=== PATIENT | female | born 1955 | race Native Hawaiian/Other Pacific Islander ===

== ENCOUNTER 2016-11-21 21:24 | Inpatient (IN) | payer OTHER, MEDICARE ==
[2016-11-21] MEDS ORDERED: SODIUM CHLORIDE FLUSH 0.9% 10 ML SYRINGE IVP ONE (21:52)
--- NOTE | 2016-11-21 21:57 | ED Physician Documentation ---
PD HPI DYSPNEA - Stated complaint Stated Complaint: SOA/SHOULDER PX - Chief complaint Chief Complaint: Resp - History obtained from History obtained from: Patient - History of Present Illness Timing - onset: Last night Timing - onset during: Light activity Timing - duration: Hours Timing - details: Gradual onset, Waxing and waning Pain level now: 8 Improved by: O2, Rest Worsened by: Exertion Associated symptoms: Wheezing, Chest pain / discomfort. No: Fever, Cough, Hemoptysis, Palpitations Similar symptoms before: Has not had sx before Recently seen: Not recently seen - Additional information Additional information: since last night (approximately 24 hours [employer]), gradual onset of dyspnea, wheezing, and midline/left chest pressure. Symptoms have gradually worsened throughout the day. Treadmill stress test approximately 4-5 years ago (patient says it was normal). Review of Systems Constitutional: reports: Reviewed and negative Eyes: reports: Reviewed and negative Ears: reports: Reviewed and negative Nose: reports: Reviewed and negative Throat: reports: Reviewed and negative Cardiac: reports: Chest pain / pressure, Pedal edema. denies: Palpitations, Calf pain Respiratory: reports: Dyspnea, Wheezing. denies: Cough GI: reports: Reviewed and negative : reports: Reviewed and negative Skin: reports: Reviewed and negative Musculoskeletal: reports: Extremity swelling (BLE edema) Neurologic: reports: Reviewed and negative PD PAST MEDICAL HISTORY - Past Medical History Past Medical History: Yes Cardiovascular: Hypertension Endocrine/Autoimmune: Type 2 diabetes - Past Surgical History Past Surgical History: Yes Ortho: Spine surgery - Present Medications Home Medications: Ambulatory Orders Medication Instructions Recorded Confirmed Albuterol Sulfate [Proair Hfa 1 - 2 puffs INH Q4H PRN 11/22/16 11/22/16 Inhaler] Aspirin [Aspirin EC] 81 mg PO DAILY 11/22/16 11/22/16 Cyclobenzaprine HCl 5 mg PO QPM PRN 11/22/16 11/22/16 Famotidine [Pepcid] 20 mg PO BID 11/22/16 11/22/16 Gabapentin 300 mg PO TID 11/22/16 11/22/16 Glipizide [Glucotrol] 10 mg PO BID 11/22/16 11/22/16 Insulin NPH Human Isophane 25 unit SQ BIDWM 11/22/16 11/22/16 [Humulin N] Insulin Regular Human [NovoLIN R] 1 ea SQ Q6H PRN 11/22/16 11/22/16 Insulin Regular, Human [Humulin R] 100 unit IJ TIDWM 11/22/16 11/22/16 Metformin HCl 1,000 mg PO BIDWM 11/22/16 11/22/16 amLODIPine [Norvasc] 10 mg PO DAILY 11/22/16 11/22/16 cloNIDine [Catapres] 0.1 mg PO TID 11/22/16 11/22/16 fentaNYL 12 MCG PATCH [Duragesic 12 mcg TOP Q3D 11/22/16 11/22/16 12mcg patch] oxyCODONE/ACET 5/325 [Percocet 5 1 each PO TID PRN 11/22/16 11/22/16 mg/325 mg] - Allergies Allergies/Adverse Reactions: Allergies Allergy/AdvReac Type Severity Reaction Status Date / Time No Known Drug Allergies Allergy Verified 11/21/16 21:38 - Living Situation Living Arrangement: reports: At home - Social History Does the pt smoke?: No PD ED PE NORMAL - Vitals Vital signs reviewed: Yes - General General: Alert and oriented X 3, Well developed/nourished, Other (mild respiratory distress (tachypneic, speaks in 2-3 word sentences)) - HEENT HEENT: Moist mucous membranes - Neck Neck: Supple, no meningeal sign - Abdomen Abdomen: Soft, Non tender, Non distended - Derm Derm: Normal color, Warm and dry - Neuro Neuro: Alert and oriented X 3 PD ED PE EXPANDED - Cardiac Cardiac: Irregularly irregular, Murmur Present - Respiratory Respiratory: Wheezing (diffuse end-expiratory wheezing) - Extremities Extremities: Pedal edema bilateral (1+) Results - Vitals Vitals: Vital Signs - 24 hr 11/21/16 11/21/16 11/21/16 21:36 22:31 22:49 Temperature 37.4 C Heart Rate 88 97 95 Respiratory 22 19 18 Rate Blood Pressure 154/82 H 155/64 H 148/66 H O2 Saturation 92 92 93 11/21/16 23:38 Temperature 36.5 C Heart Rate 79 Respiratory 18 Rate Blood Pressure 133/64 H O2 Saturation 95 Oxygen O2 Source Nasal cannula Oxygen Flow Rate 3 - EKG (time done) No standard instances Rate: Rate (enter#) (96) Rhythm: Atrial fibrillation [place]: Normal QRS: LVH Ischemia: T wave inversion (V5, V6, I) - Labs Labs: Laboratory Tests 11/21/16 11/21/16 11/21/16 21:50 21:50 21:50 WBC 14.4 H RBC 3.24 L Hgb 10.7 L Hct 32.8 L MCV 101.3 H MCH 32.9 H MCHC 32.5 RDW 13.6 Plt Count 227 MPV 8.7 Neut # 11.6 H Lymph # 1.6 [place] # 1.0 Eos # 0.1 Baso # 0.1 Absolute Nucleated RBC 0.02 Nucleated RBCs 0.1 Sodium 138 Potassium 3.5 Chloride 105 Carbon Dioxide 23 Anion Gap 10.0 BUN 32 H Creatinine 1.4 H Estimated GFR (MDRD) 38 L Glucose 220 H Calcium 9.1 Total Bilirubin 1.5 H AST 48 H ALT 93 H Alkaline Phosphatase 65 Troponin I < 0.04 B-Natriuretic Peptide Total Protein 8.4 H Albumin 4.1 Globulin 4.3 H Albumin/Globulin Ratio 1.0 Lipase 48 11/21/16 21:50 WBC RBC Hgb Hct MCV MCH MCHC RDW Plt Count MPV Neut # Lymph # [place] # Eos # Baso # Absolute Nucleated RBC Nucleated RBCs Sodium Potassium Chloride Carbon Dioxide Anion Gap BUN Creatinine Estimated GFR (MDRD) Glucose Calcium Total Bilirubin AST ALT Alkaline Phosphatase Troponin I B-Natriuretic Peptide 567 H Total Protein Albumin Globulin Albumin/Globulin Ratio Lipase - Rads (name of study) chest xray Radiology: Prelim report reviewed, See rad report PD MEDICAL DECISION MAKING - ED course Complexity details: reviewed results, re-evaluated patient, considered differential, d/w patient Departure - Departure Disposition: 66 [facility] DC/Xfer Clinical Impression: Congestive heart failure Qualifiers: Congestive heart failure type: unspecified congestive heart failure type Congestive heart failure chronicity: acute Qualified Code(s): I50.9 - Heart failure, unspecified Chest pain Qualifiers: Chest pain type: unspecified Qualified Code(s): R07.9 - Chest pain, unspecified Atrial fibrillation Qualifiers: Atrial fibrillation type: persistent Qualified Code(s): I48.1 - Persistent atrial fibrillation Condition: Stable Discharge Date/Time: 11/22/16 00:45
[2016-11-21] MEDS ORDERED: NITROGLYCERIN 2% PASTE TOP STA (22:20)
[2016-11-21] MEDS ORDERED: FUROSEMIDE 40 MG/4 ML VIAL IVP STA (22:20)
[2016-11-21 22:28] LABS: BASOPHILS # (AUTO) 0.1 10^3/uL (0.0-0.1); BASOPHILS % (AUTO) 0.6 %; EOSINOPHILS # (AUTO) 0.1 10^3/uL (0.0-0.7); EOSINOPHILS % (AUTO) 0.7 %; HCT - HEMATOCRIT 32.8 % (37.0-47.0); HGB - HEMOGLOBIN 10.7 g/dL (12.0-16.0); LYMPHOCYTES # (AUTO) 1.6 10^3/uL (1.5-3.5); LYMPHOCYTES % (AUTO) 11.1 %; MEAN CORPUSCULAR HEMOGLOBIN 32.9 pg (27.0-31.0); MEAN CORPUSCULAR HGB CONC 32.5 g/dL (32.0-36.0); MEAN CORPUSCULAR VOLUME 101.3 fL (81.0-99.0); MEAN PLATELET VOLUME 8.7 fL (7.9-10.8); NEUTROPHILS # (AUTO) 11.6 10^3/uL (1.5-6.6); NEUTROPHILS % (AUTO) 80.6 %; NUCLEATED RED BLOOD CELLS AUTO 0.1 /100WBC; RED BLOOD COUNT 3.24 10^6/uL (4.20-5.40); RED CELL DISTRIBUTION WIDTH 13.6 % (12.0-15.0); UNCORRECTED WHITE BLOOD COUNT 14.4 x10^3/uL; WHITE BLOOD COUNT 14.4 x10^3/uL (4.8-10.8)
[2016-11-21] MEDS ORDERED: FUROSEMIDE 40 MG/4 ML VIAL ONE (22:28)
[2016-11-21] MEDS ORDERED: NITROGLYCERIN 2% PASTE TOP ONE (22:28)
[2016-11-21 22:40] LABS: BILIRUBIN,TOTAL 1.5 mg/dL (0.2-1.0); CALCIUM 9.1 mg/dL (8.5-10.3); CREATININE 1.4 mg/dL (0.4-1.0); POTASSIUM 3.5 mmol/L (3.5-5.0); TOTAL PROTEIN 8.4 g/dL (6.7-8.2)
--- NOTE | 2016-11-21 22:47 | XRAY Preliminary Report ---
Exam: XR Chest 1 View IMPRESSION: Congestive failure. [facility] SITE ID: [id number]
--- NOTE | 2016-11-21 22:49 | XRAY Report ---
EXAM: CHEST RADIOGRAPHY EXAM DATE: 11/21/2016 10:41 PM. CLINICAL HISTORY: Dyspnea, chest pain. COMPARISON: None. TECHNIQUE: 1 view. FINDINGS: Lungs/Pleura: Diffuse hazy infiltration throughout both lungs, sparing the left apex. Septal lines. N o consolidation, definite effusion, or pneumothorax. Mediastinum: Mild cardiomegaly. Mild vascular fullness. Other: Postoperative changes in the spine, degenerative changes. IMPRESSION: Congestive failure. [facility] Referring Provider Line: [phone] SITE ID: [id number]
[2016-11-21] MEDS ORDERED: IBUPROFEN 600 MG TABLET PO PRN (23:57)
[2016-11-21] MEDS ORDERED: ACETAMINOPHEN 325 MG TABLET PO PRN (23:57)
[2016-11-21] MEDS ORDERED: PROCHLORPERAZINE 10 MG/2 ML VIAL IVP PRN (23:57)
[2016-11-21] MEDS ORDERED: ZOLPIDEM 5 MG TABLET PO PRN (23:57)
[2016-11-22] MEDS ORDERED: NITROGLYCERIN SL 0.4 MG TABLET SL STA (00:12)
[2016-11-22] MEDS ORDERED: NITROGLYCERIN SL 0.4 MG TABLET SL PRN (01:32)
[2016-11-22] MEDS ORDERED: oxyCOD/ACETAMIN 5 MG/325 MG TABLET PO PRN (01:38)
[2016-11-22] MEDS: NITROGLYCERIN 2% PASTE TOP SCH ×4 (01:46→18:54)
--- NOTE | 2016-11-22 02:25 | HISTORY & PHYSICAL EXAMINATION ---
DATE OF ADMISSION: 11/21/2016 HISTORY OF PRESENT ILLNESS: This is a 61-year-old female of [place] descent who lives in [place] and is visiting. 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 The patient remembers that over 10 years ago she had "a rapid heart rate that they needed to stop." She remembers having a stress test 4 years ago that she stated was normal. The patient presented with a 2-day history of rapid onset of shortness of breath with activity and chest discomfort during her activity of walking, which is new. One week prior, she started to develop swelling of her legs and her face , she claims. There have been no new changes in medications, no travel, she denies fever, cough, palpitations, syncope. For these complaints, she presented to the emergency room and was found to be in new atrial fibrillation and also to be in heart failure and is admitted. MEDICATIONS: Before admission were. 1. Clonidine. 2. Insulin long-acting and short-acting. 3. Gabapentin. 4. Fentanyl patch. 5. Duragesic patch. 6. Aspirin daily. 7. Glipizide. 8. Metformin. ALLERGIES: NO KNOWN ALLERGIES. FAMILY HISTORY: Not significant for heart disease. SOCIAL HISTORY: She is a nonsmoker, drinks no alcohol. REVIEW OF SYSTEMS Only as above, with the pertinent negatives and positives. PHYSICAL EXAMINATION: GENERAL: Reveals a [place] female who is in mild respiratory distress while speaking and her head of bed is elevated. VITAL SIGNS: Blood pressure 130/60, heart rate is 80-100 in atrial fibrillation. She is afebrile. HEENT: Unremarkable with normal moist mucous membranes. NECK: Shows no JVD at an 80 degree upright angle. No carotid bruits, no thyromegaly or lymphadenopathy. CHEST: Left basilar rales and right basilar wheezes. HEART: Irregular with a 2/6 systolic murmur heard at the lower left sternal border. There is no gallop or heave. ABDOMEN: Soft with positive bowel sounds. EXTREMITIES: Show 1+ pretibial edema. No clubbing or cyanosis. Normal dorsalis pedis pulses. NEUROLOGIC: Grossly intact. LABORATORY DATA: Sodium 138, potassium 3.5, BUN 32, creatinine 1.4, AST 48, ALT 93. Two troponins are normal at less than 0.04. BNP 567. White blood count 40.4 , hemoglobin 10.7 with an MCV of 101, normal platelet count. No INR was done. Chest x-ray shows mild CHF. EKG shows atrial fib with diffuse nonspecific ST-T changes. Heart rate is 90 on the EKG. There is no old EKG available for comparison. IMPRESSION: 1. New onset of atrial fibrillation with relatively controlled rate. 2. Congestive heart failure. Chest x-ray and clinically (as "acardiac asthma"). 3. Hypertension, treated with clonidine at home. 4. Diabetes on insulin. 5. Renal insufficiency. 6. Heart murmur. 7. History of heart murmur or "hole in the heart as a child." PLAN: Admit the patient to telemetry. Diurese. Follow her BUN, creatinine, potassium and magnesium. Obtain troponins x3 to rule out an MN. Follow her BNP. Check lipid panel and treat per guidelines in a diabetic. Continue with diuresis , nitrates and add Cardizem p.o. for rate control. Because of the additional nitrates, Lasix and Cardizem, her clonidine will not be administered t.i.d. and amlodipine will be held. Continue with her diabetic management, including a sliding scale insulin for coverage. Obtain an echo. Depending on troponin values , which appear to be indicating that she is ruling out for an MN, she will need a stress test once she has cleared her CHF symptoms. JOB #: [id number] EXT JOB #:[id number] DEDRA
[2016-11-22 06:27] LABS: CHOL/HDL RATIO 4.6 (<4.4); CHOLESTEROL 173 mg/dL; HDL CHOLESTEROL 38 mg/dL; LDL/HDL RATIO 3.1 (<4.4); TRIGLYCERIDES 80 mg/dL; VLDL CHOLESTEROL 16 mg/dL
[2016-11-22] MEDS: SODIUM CHLORIDE FLUSH 0.9% 10 ML SYRINGE IVP SCH ×3 (06:41→21:29)
[2016-11-22] MEDS: GABAPENTIN 300 MG CAPSULE PO SCH ×4 (06:41→21:29)
[2016-11-22] MEDS ORDERED: metFORMIN 500 MG TABLET PO SCH (08:00)
[2016-11-22] MEDS ORDERED: INSULIN REGULAR HUMAN 100 UNIT/1 ML 10 ML MDV SUBQ SCH (08:00)
[2016-11-22] MEDS ORDERED: glipiZIDE 5 MG TABLET PO SCH (09:00)
[2016-11-22] MEDS ORDERED: FAMOTIDINE 20 MG TABLET PO SCH (09:00)
[2016-11-22] MEDS ORDERED: FUROSEMIDE 20 MG/2 ML VIAL IVP SCH (09:00)
[2016-11-22] MEDS ORDERED: ASPIRIN 325 MG TABLET PO SCH (09:00)
[2016-11-22] MEDS: cloNIDine 0.1 MG TABLET PO SCH (10:09)
[2016-11-22] MEDS: INSULIN NPH HUMAN 100 UNIT/1 ML 10 ML MDV SUBQ SCH ×2 (10:17→17:33)
[2016-11-22] MEDS: POLYETHYLENE GLYCOL 3350 17 GM PACKET PO SCH (10:18)
[2016-11-22] MEDS: FAMOTIDINE 20 MG TABLET PO SCH ×2 (10:18→21:29)
[2016-11-22] MEDS: ENOXAPARIN 40 MG/0.4 ML SYRINGE SUBQ SCH ×2 (10:18→21:28)
[2016-11-22] MEDS: SODIUM CHLORIDE FLUSH 0.9% 10 ML SYRINGE IVP PRN (10:25)
[2016-11-22] MEDS: HYDROcod/ACETAM 5/325 MG TABLET PO PRN ×2 (11:27→17:33)
[2016-11-22 17:54] LABS: HEMOGLOBIN A1C 0.6 g/dL
[2016-11-22] MEDS: FUROSEMIDE 40 MG/4 ML VIAL IVP SCH (21:28)
[2016-11-22] MEDS: INSULIN ASPART 300 UNIT/3 ML PEN SUBQ SCH (21:39)
[2016-11-23] MEDS: NITROGLYCERIN 2% PASTE TOP SCH ×3 (00:16→12:25)
[2016-11-23 06:22] LABS: BILIRUBIN,DIRECT 0.4 mg/dL (0.1-0.5); BILIRUBIN,TOTAL 1.5 mg/dL (0.2-1.0); CALCIUM 8.6 mg/dL (8.5-10.3); CREATININE 1.5 mg/dL (0.4-1.0); MAGNESIUM 2.2 mg/dL (1.7-2.8); POTASSIUM 3.6 mmol/L (3.5-5.0); TOTAL PROTEIN 7.2 g/dL (6.7-8.2)
[2016-11-23] MEDS: SODIUM CHLORIDE FLUSH 0.9% 10 ML SYRINGE IVP SCH ×3 (06:37→21:33)
[2016-11-23] MEDS: GABAPENTIN 300 MG CAPSULE PO SCH ×3 (06:38→21:31)
[2016-11-23 06:49] LABS: HCT - HEMATOCRIT 29.1 % (37.0-47.0); HGB - HEMOGLOBIN 9.5 g/dL (12.0-16.0); MEAN CORPUSCULAR HEMOGLOBIN 33.5 pg (27.0-31.0); MEAN CORPUSCULAR HGB CONC 32.8 g/dL (32.0-36.0); MEAN PLATELET VOLUME 8.8 fL (7.9-10.8); RED BLOOD COUNT 2.85 10^6/uL (4.20-5.40); RED CELL DISTRIBUTION WIDTH 13.5 % (12.0-15.0); WHITE BLOOD COUNT 10.3 x10^3/uL (4.8-10.8)
[2016-11-23] MEDS: INSULIN ASPART 300 UNIT/3 ML PEN SUBQ SCH ×4 (08:00→21:33)
[2016-11-23] MEDS: INSULIN NPH HUMAN 100 UNIT/1 ML 10 ML MDV SUBQ SCH ×2 (08:10→17:42)
[2016-11-23] MEDS: POLYETHYLENE GLYCOL 3350 17 GM PACKET PO SCH (08:58)
[2016-11-23] MEDS: ASPIRIN EC 81 MG TABLET PO SCH (08:58)
[2016-11-23] MEDS: SODIUM CHLORIDE FLUSH 0.9% 10 ML SYRINGE IVP PRN (08:58)
[2016-11-23] MEDS: FAMOTIDINE 20 MG TABLET PO SCH ×2 (08:58→21:31)
[2016-11-23] MEDS: cloNIDine 0.1 MG TABLET PO SCH (08:58)
[2016-11-23] MEDS: ENOXAPARIN 40 MG/0.4 ML SYRINGE SUBQ SCH ×2 (08:58→21:32)
[2016-11-23] MEDS: FUROSEMIDE 40 MG/4 ML VIAL IVP SCH ×2 (08:59→21:31)
[2016-11-23] MEDS ORDERED: fentaNYL 12 MCG PATCH TOP SCH (09:00)
[2016-11-23] MEDS: diltiaZEM 30 MG TABLET PO SCH ×2 (16:42→17:43)
--- NOTE | 2016-11-23 17:06 | PROVIDER PROGRESS NOTE ---
Assessment/Plan - Problem List (1) Atrial fibrillation Qualifiers: Atrial fibrillation type: persistent Qualified Code(s): I48.1 - Persistent atrial fibrillation Assessment/Plan: She is still having wide swings in her HR from 40s to 120s Her dose was reduced to 30 mg Q 6HR May need to use other med possibly Digoxin but concerned of the possibility of excessive bradycardia (2) Congestive heart failure Qualifiers: Congestive heart failure type: unspecified congestive heart failure type Congestive heart failure chronicity: acute Qualified Code(s): I50.9 - Heart failure, unspecified Assessment/Plan: Her hypoxia seems exagerated for the mild CHF if it is that at all Problematic to invoke just the A fib when she has an EF of 60%. New Hx reveals a gradual onset and visits to [place] doctor with use of albuterol. Will get CT angio and PFT to try to further delineate the cause. - Current Meds Current Meds: Current Medications Generic Name Dose Route Start Last Admin Trade Name Freq PRN Reason Stop Dose Admin Acetaminophen/Hydrocodone Bitart 1 tab 11/21/16 23:57 11/22/16 17:33 [place] 5/325 PO 1 tab Q4HR PRN Administration Pain 5 to 7 Aspirin 81 mg 11/23/16 09:00 11/23/16 08:58 Ecotrin PO 81 mg DAILY ERIKA Administration Clonidine HCl 0.1 mg 11/22/16 09:00 11/23/16 08:58 Catapres PO 0.1 mg DAILY ERIKA Administration Diltiazem HCl 30 mg 11/23/16 13:00 11/23/16 16:42 Cardizem PO Not Given Q6HR ERIKA Enoxaparin Sodium 40 mg 11/22/16 09:00 11/23/16 08:58 Lovenox SUBQ 40 mg BID ERIKA Administration Famotidine 20 mg 11/22/16 09:00 11/23/16 08:58 Pepcid PO 20 mg BID ERIKA Administration Fentanyl 1 patch 11/23/16 09:00 11/23/16 09:03 Duragesic TOP 1 patch Q3D ERIKA Administration Furosemide 40 mg 11/22/16 17:23 11/23/16 08:59 Lasix Inj 40 Mg Vial IVP 40 mg BID ERIKA Administration Gabapentin 300 mg 11/22/16 06:00 11/23/16 16:42 Neurontin PO 300 mg TID ERIKA Administration Ibuprofen 600 mg 11/21/16 23:57 11/22/16 14:34 Motrin PO 600 mg Q6HR PRN Administration Pain 1 to 4 Insulin Aspart 2 - 10 unit 11/22/16 21:00 11/23/16 11:56 Novolog SUBQ 2 unit 0800,1200,1700,2100 ERIKA Administration Protocol Insulin Human NPH 25 unit 11/22/16 08:00 11/23/16 08:10 Novolin N SUBQ 25 unit BIDWM ERIKA Administration Polyethylene Glycol 17 gm 11/22/16 09:00 11/23/16 08:58 Miralax PO 17 gm DAILY ERIKA Administration Prochlorperazine Edisylate 10 mg 11/21/16 23:57 11/22/16 14:35 Compazine Inj IVP 10 mg Q6HR PRN Administration Nausea / Vomiting Sodium Chloride 10 ml 11/21/16 23:57 11/23/16 08:58 Normal Saline Flush 0.9% IVP 10 ml PRN PRN Administration NEEDED PER PROVIDER ORDERS Sodium Chloride 10 ml 11/22/16 06:00 11/23/16 16:42 Normal Saline Flush 0.9% IVP 10 ml Q8HR ERIKA Administration - Lab Result Fish Bone Diagrams: 11/23/16 05:33 11/23/16 05:33 - Additional Planning My Orders: My Active Orders 11/22/16 17:03 Blood Glucose Checks - Eating [RC] 0800,1200,1700,2100 Initiate Hypoglycemia Protocol [RC] .protocol 11/22/16 17:23 FUROSEMIDE INJ 40mg VIAL [LASIX INJ 40 mg VIAL] 40 mg IVP BID 11/22/16 21:00 Insulin Aspart [NovoLOG] 2 - 10 unit SUBQ 0800,1200,1700,2100 11/23/16 Chest Angio (PE) [CT] Routine 11/23/16 09:00 Aspirin EC [Ecotrin] 81 mg PO DAILY 11/23/16 13:00 diltiaZEM [Cardizem] 30 mg PO Q6HR 11/23/16 17:00 Pulmonary [PFT - Before & After Bronchodi] [RC] .ONCE 11/24/16 00:01 NPO [DIET] 11/24/16 04:00 NPO [DIET] 11/24/16 05:00 BNP - B-NATRIURETIC PEPTIDE [IAI] DAILYLAB CBC - COMP BLD CT W/AUTO DIFF [HEME] DAILYLAB COMPREHENSIVE METABOLIC PANEL [CHEM] DAILYLAB 11/24/16 08:00 Chest Angio (PE) [CT] Routine 11/25/16 05:00 CBC - COMP BLD CT W/AUTO DIFF [HEME] DAILYLAB COMPREHENSIVE METABOLIC PANEL [CHEM] DAILYLAB Subjective - Subjective Patient Reports: Resting Comfortably, Shortness of Breath Nursing Reports: Shortness of Breath Objective Vital Signs: Vital Signs - 24 hr 11/22/16 11/23/16 11/23/16 17:33 00:15 06:37 Temperature 37.2 C Heart Rate [ 63 Brachial] Respiratory 16 Rate Blood Pressure 150/66 H 127/58 L 136/58 H Blood Pressure 127/58 L [Left Brachial artery] Blood Pressure [Right Brachial artery] O2 Saturation 94 11/23/16 11/23/16 11/23/16 08:55 11:43 16:11 Temperature 36.1 C L Heart Rate [ 63 51 L 48 L Brachial] Respiratory 20 20 Rate Blood Pressure Blood Pressure 137/72 H 139/79 H [Left Brachial artery] Blood Pressure 133/63 H [Right Brachial artery] O2 Saturation 93 94 95 11/23/16 16:39 Temperature Heart Rate [ 72 Brachial] Respiratory Rate Blood Pressure Blood Pressure [Left Brachial artery] Blood Pressure 156/77 H [Right Brachial artery] O2 Saturation 94 Oxygen O2 Source Nasal cannula I&O (Last 24 Hrs): Intake and Output Totals x24h 11/21/16 11/22/16 11/23/16 23:59 23:59 23:59 Intake Total 920 710 Output Total 500 400 Balance 420 310 General: Alert, Oriented x3, Cooperative HEENT: PERRLA, EOMI Neck: No JVD, No thyromegaly Neuro: Alert, Oriented Times 3 Respiratory: Rales Abdomen: Soft, No tenderness Skin: No rashes - Results Results: Laboratory Results WBC 10.3 x10^3/uL (4.8-10.8) 11/23/16 05:33 RBC 2.85 10^6/uL (4.20-5.40) L 11/23/16 05:33 Hgb 9.5 g/dL (12.0-16.0) L 11/23/16 05:33 Hct 29.1 % (37.0-47.0) L 11/23/16 05:33 MCV 102.0 fL (81.0-99.0) H 11/23/16 05:33 MCH 33.5 pg (27.0-31.0) H 11/23/16 05:33 MCHC 32.8 g/dL (32.0-36.0) 11/23/16 05:33 RDW 13.5 % (12.0-15.0) 11/23/16 05:33 Plt Count 189 10^3/uL (130-450) 11/23/16 05:33 MPV 8.8 fL (7.9-10.8) 11/23/16 05:33 Neut # 11.6 10^3/uL (1.5-6.6) H 11/21/16 21:50 Lymph # 1.6 10^3/uL (1.5-3.5) 11/21/16 21:50 [place] # 1.0 10^3/uL (0.0-1.0) 11/21/16 21:50 Eos # 0.1 10^3/uL (0.0-0.7) 11/21/16 21:50 Baso # 0.1 10^3/uL (0.0-0.1) 11/21/16 21:50 Absolute Nucleated RBC 0.02 x10^3/uL 11/21/16 21:50 Nucleated RBCs 0.1 /100WBC 11/21/16 21:50 D-Dimer 233.6 ng/mL (200.0-255.0) 11/23/16 09:03 Sodium 139 mmol/L (135-145) 11/23/16 05:33 Potassium 3.6 mmol/L (3.5-5.0) 11/23/16 05:33 Chloride 105 mmol/L (101-111) 11/23/16 05:33 Carbon Dioxide 25 mmol/L (21-32) 11/23/16 05:33 Anion Gap 9.0 (6-13) 11/23/16 05:33 BUN 35 mg/dL (6-20) H 11/23/16 05:33 Creatinine 1.5 mg/dL (0.4-1.0) H 11/23/16 05:33 Estimated GFR (MDRD) 35 (>89) L 11/23/16 05:33 Glucose 90 mg/dL (70-100) 11/23/16 05:33 POC Whole Bld Glucose 66 mg/dL (70 - 100) L 11/23/16 16:47 Glycated Hemoglobin 7.5 % (4.6-6.2) H 11/22/16 05:33 Estim Average Glucose 169 (70-100) H 11/22/16 05:33 Calcium 8.6 mg/dL (8.5-10.3) 11/23/16 05:33 Magnesium 2.2 mg/dL (1.7-2.8) 11/23/16 05:33 Total Bilirubin 1.5 mg/dL (0.2-1.0) H 11/23/16 05:33 Direct Bilirubin 0.4 mg/dL (0.1-0.5) 11/23/16 05:33 AST 41 IU/L (10-42) 11/23/16 05:33 ALT 83 IU/L (10-60) H 11/23/16 05:33 Alkaline Phosphatase 55 IU/L (42-121) 11/23/16 05:33 Troponin I < 0.04 ng/mL (<0.49) 11/22/16 05:33 B-Natriuretic Peptide 531 pg/mL (5-100) H 11/23/16 05:33 Total Protein 7.2 g/dL (6.7-8.2) 11/23/16 05:33 Albumin 3.4 g/dL (3.2-5.5) 11/23/16 05:33 Globulin 3.8 g/dL (2.1-4.2) 11/23/16 05:33 Albumin/Globulin Ratio 1.0 (1.0-2.2) 11/21/16 21:50 Triglycerides 80 mg/dL (-149) 11/22/16 05:33 Cholesterol 173 mg/dL (-199) 11/22/16 05:33 LDL Cholesterol, Calc 119 mg/dL (-129) 11/22/16 05:33 VLDL Cholesterol 16 mg/dL 11/22/16 05:33 HDL Cholesterol 38 mg/dL (60-) L 11/22/16 05:33 LDL/HDL Ratio 3.1 (<4.4) 11/22/16 05:33 Cholesterol/HDL Ratio 4.6 (<4.4) 11/22/16 05:33 Lipase 48 U/L (22-51) 11/21/16 21:50
[2016-11-23] MEDS: HYDROcod/ACETAM 5/325 MG TABLET PO PRN (21:35)
[2016-11-24] MEDS: diltiaZEM 30 MG TABLET PO SCH ×2 (00:12→07:35)
[2016-11-24 05:41] LABS: BASOPHILS # (AUTO) 0.1 10^3/uL (0.0-0.1); BASOPHILS % (AUTO) 1.3 %; EOSINOPHILS # (AUTO) 0.6 10^3/uL (0.0-0.7); EOSINOPHILS % (AUTO) 7.5 %; HCT - HEMATOCRIT 31.6 % (37.0-47.0); HGB - HEMOGLOBIN 10.4 g/dL (12.0-16.0); LYMPHOCYTES # (AUTO) 2.4 10^3/uL (1.5-3.5); LYMPHOCYTES % (AUTO) 28.9 %; MEAN CORPUSCULAR HEMOGLOBIN 33.4 pg (27.0-31.0); MEAN CORPUSCULAR VOLUME 101.1 fL (81.0-99.0); MEAN PLATELET VOLUME 8.5 fL (7.9-10.8); MONOCYTES # (AUTO) 0.8 10^3/uL (0.0-1.0); MONOCYTES % (AUTO) 9.8 %; NEUTROPHILS # (AUTO) 4.3 10^3/uL (1.5-6.6); NEUTROPHILS % (AUTO) 52.5 %; NUCLEATED RED BLOOD CELLS AUTO 0.2 /100WBC; RED BLOOD COUNT 3.13 10^6/uL (4.20-5.40); RED CELL DISTRIBUTION WIDTH 13.4 % (12.0-15.0); UNCORRECTED WHITE BLOOD COUNT 8.3 x10^3/uL; WHITE BLOOD COUNT 8.3 x10^3/uL (4.8-10.8)
[2016-11-24 05:46] LABS: ALBUMIN/GLOBULIN RATIO 0.8 (1.0-2.2); BILIRUBIN,TOTAL 1.2 mg/dL (0.2-1.0); CREATININE 1.1 mg/dL (0.4-1.0); POTASSIUM 3.4 mmol/L (3.5-5.0); TOTAL PROTEIN 7.7 g/dL (6.7-8.2)
[2016-11-24] MEDS: GABAPENTIN 300 MG CAPSULE PO SCH ×3 (06:29→21:25)
[2016-11-24] MEDS: SODIUM CHLORIDE FLUSH 0.9% 10 ML SYRINGE IVP SCH ×3 (06:30→21:26)
[2016-11-24] MEDS ORDERED: IOPAMIDOL-300 100 ML VIAL IVP ONE ×2 (08:49)
[2016-11-24] MEDS: POLYETHYLENE GLYCOL 3350 17 GM PACKET PO SCH (08:57)
[2016-11-24] MEDS: FUROSEMIDE 40 MG/4 ML VIAL IVP SCH ×2 (08:58→21:20)
[2016-11-24] MEDS: ENOXAPARIN 40 MG/0.4 ML SYRINGE SUBQ SCH ×2 (08:58→21:25)
[2016-11-24] MEDS: ASPIRIN EC 81 MG TABLET PO SCH (08:58)
[2016-11-24] MEDS: FAMOTIDINE 20 MG TABLET PO SCH ×2 (08:58→21:25)
[2016-11-24] MEDS: cloNIDine 0.1 MG TABLET PO SCH (08:58)
[2016-11-24] MEDS ORDERED: cefTRIAXone 2 GM VIAL IVP SCH (09:00)
[2016-11-24] MEDS: diltiaZEM CD 120 MG CAPSULE PO SCH (09:01)
[2016-11-24] MEDS: INSULIN NPH HUMAN 100 UNIT/1 ML 10 ML MDV SUBQ SCH ×2 (09:02→17:42)
--- NOTE | 2016-11-24 10:13 | CT Preliminary Report ---
Exam: CT Chest Angio (PE) IMPRESSION: No pulmonary emboli evident. Streak artifacts related to posterior thoracic spine fusion hardware not ed. Congestive heart failure. Cardiomegaly with interstitial and alveolar edema. Asymmetric prominence of right upper lobe airspace disease could be related to pneumonia. Recommend clinical correlation. Mil d right hilar and mediastinal adenopathy. [facility] SITE ID: [id number]
[2016-11-24] MEDS: INSULIN ASPART 300 UNIT/3 ML PEN SUBQ SCH ×4 (11:00→21:20)
--- NOTE | 2016-11-24 11:34 | CT Report ---
EXAM: CT ANGIOGRAM CHEST EXAM DATE: 11/24/2016 08:50 AM. CLINICAL HISTORY: Hypoxia. COMPARISON: 11/21/2016 chest x-ray. TECHNIQUE: Routine helical imaging was performed through the chest in the pulmonary arterial phase. I V Contrast: 100 mL Isovue 300. Reconstructions: Coronal 3-D MIP reconstructions.Sagittal and coronal. In accordance with CT protocol optimization, one or more of the following dose reduction techniques w ere utilized for this exam: automated exposure control, adjustment of mA and/or KV based on patient s ize, or use of iterative reconstructive technique. FINDINGS: Pulmonary Arteries: Diagnostic quality: Adequate through the segmental arteries, allowing for streak artifacts related to extensive posterior thoracic spine fusion hardware. No evidence for acute or chronic pulmonary emboli. RV/LV is within normal limits. There is no interventricular septal bowing. There is no reflux of cont rast material in the IVC. Lungs/Pleura: No consolidation, nodules, or edema. No effusions or pneumothorax. Mediastinum: Mild interstitial fullness. Multifocal areas of prominent groundglass infiltrates, prima rily within the right upper lobe. The right middle lobe and left upper lobe are affected to a lesser degree. Bilateral lower lobe atelectasis. Small right and trace left layering pleural effusions. Mild right hilar and left lower paratracheal mediastinal adenopathy with lymph nodes measuring up to 1 cm short axis. Thoracic Aorta: Unremarkable. Upper Abdomen: Probable 9 mm splenule near the splenic flexure of colon. The spleen is not enlarged. Normal adrenal glands. Other: Old T7 and T8 vertebral body fractures with partial ankylosis of vertebral bodies. Prior remot e posterior fusion from T4 to T11 levels. Pedicle screws at each level except for T7 and T8. Bilatera l vertical connecting rods. IMPRESSION: 1. No pulmonary emboli evident. Streak artifacts related to posterior thoracic spine fusion hardware. 2. Congestive heart failure. Cardiomegaly with interstitial and alveolar edema. Asymmetric prominence of right upper lobe airspace disease could be related to pneumonia. Recommend clinical correlation. 3. Mild right hilar and mediastinal adenopathy. [facility] Referring Provider Line: [phone] SITE ID: [id number]
[2016-11-24] MEDS: HYDROcod/ACETAM 5/325 MG TABLET PO PRN (15:42)
[2016-11-24] MEDS ORDERED: cefTRIAXone 2 GM in SODIUM CHLORIDE 0.9% MINIBAG 100 ML IV SCH (16:00)
--- NOTE | 2016-11-24 16:26 | PROVIDER PROGRESS NOTE ---
Assessment/Plan - Problem List (1) Atrial fibrillation Qualifiers: Atrial fibrillation type: persistent Qualified Code(s): I48.1 - Persistent atrial fibrillation Assessment/Plan: Better control with lower dose but BP still low nml. Changed her to CARDIAZEM CD. (2) Congestive heart failure Qualifiers: Congestive heart failure type: unspecified congestive heart failure type Congestive heart failure chronicity: acute Qualified Code(s): I50.9 - Heart failure, unspecified - Current Meds Current Meds: Current Medications Generic Name Dose Route Start Last Admin Trade Name Freq PRN Reason Stop Dose Admin Acetaminophen/Hydrocodone Bitart 1 tab 11/21/16 23:57 11/24/16 15:42 [place] 5/325 PO 1 tab Q4HR PRN Administration Pain 5 to 7 Aspirin 81 mg 11/23/16 09:00 11/24/16 08:58 Ecotrin PO 81 mg DAILY ERIKA Administration Clonidine HCl 0.1 mg 11/22/16 09:00 11/24/16 08:58 Catapres PO 0.1 mg DAILY ERIKA Administration Diltiazem HCl 120 mg 11/24/16 09:00 11/24/16 09:01 Cardizem Cd PO 120 mg DAILY ERIKA Administration Enoxaparin Sodium 40 mg 11/22/16 09:00 11/24/16 08:58 Lovenox SUBQ 40 mg BID ERIKA Administration Famotidine 20 mg 11/22/16 09:00 11/24/16 08:58 Pepcid PO 20 mg BID ERIKA Administration Fentanyl 1 patch 11/23/16 09:00 11/23/16 09:03 Duragesic TOP 1 patch Q3D ERIKA Administration Furosemide 40 mg 11/22/16 17:23 11/24/16 08:58 Lasix Inj 40 Mg Vial IVP 40 mg BID ERIKA Administration Gabapentin 300 mg 11/22/16 06:00 11/24/16 14:09 Neurontin PO 300 mg TID ERIKA Administration Ibuprofen 600 mg 11/21/16 23:57 11/22/16 14:34 Motrin PO 600 mg Q6HR PRN Administration Pain 1 to 4 Insulin Aspart 2 - 10 unit 11/22/16 21:00 11/24/16 12:00 Novolog SUBQ 8 unit 0800,1200,1700,2100 ERIKA Administration Protocol Insulin Human NPH 10 unit 11/23/16 17:49 11/24/16 09:02 Novolin N SUBQ 10 unit BIDWM ERIKA Administration Polyethylene Glycol 17 gm 11/22/16 09:00 11/24/16 08:57 Miralax PO 17 gm DAILY ERIKA Administration Prochlorperazine Edisylate 10 mg 11/21/16 23:57 11/22/16 14:35 Compazine Inj IVP 10 mg Q6HR PRN Administration Nausea / Vomiting Sodium Chloride 10 ml 11/21/16 23:57 11/23/16 08:58 Normal Saline Flush 0.9% IVP 10 ml PRN PRN Administration NEEDED PER PROVIDER ORDERS Sodium Chloride 10 ml 11/22/16 06:00 11/24/16 14:13 Normal Saline Flush 0.9% IVP Not Given Q8HR ERIKA - Lab Result Fish Bone Diagrams: 11/24/16 05:01 11/24/16 05:01 - Additional Planning My Orders: My Active Orders 11/23/16 17:00 Pulmonary [PFT - Before & After Bronchodi] [RC] .ONCE 11/23/16 17:49 Insulin NPH Human [NovoLIN N] 10 unit SUBQ BIDWM 11/24/16 09:00 diltiaZEM CD [Cardizem Cd] 120 mg PO DAILY 11/24/16 16:00 cefTRIAXone [Rocephin] 2 gm Sodium Chloride 0.9% Minibag [Normal Saline 0.9% Minibag] 100 ml IV Q24H 11/24/16 17:00 Azithromycin Inj [Zithromax Inj] 500 mg Sodium Chloride 0.9% [Normal Saline 0.9%] 250 ml IV Q24H 11/24/16 Lunch DIET [Carb-controlled Diet] [DIET] 11/25/16 05:00 CBC - COMP BLD CT W/AUTO DIFF [HEME] DAILYLAB COMPREHENSIVE METABOLIC PANEL [CHEM] DAILYLAB Subjective - Subjective Patient Reports: Resting Comfortably Nursing Reports: Shortness of Breath, Other (says she is dizzy says R ear plugged. It was examined but found nml.) Objective Vital Signs: Vital Signs - 24 hr 11/23/16 11/23/16 11/23/16 16:39 17:43 23:52 Temperature 36.2 C L Heart Rate [ 72 68 Brachial] Respiratory 19 Rate Blood Pressure 136/77 H Blood Pressure 136/68 H [Left Brachial artery] Blood Pressure 156/77 H [Right Brachial artery] O2 Saturation 94 95 11/24/16 11/24/16 11/24/16 00:12 06:06 07:29 Temperature 36.7 C Heart Rate [ 57 L 84 Brachial] Respiratory 20 20 Rate Blood Pressure 144/64 H Blood Pressure [Left Brachial artery] Blood Pressure 139/73 H 147/65 H [Right Brachial artery] O2 Saturation 94 95 Oxygen O2 Source Nasal cannula I&O (Last 24 Hrs): Intake and Output Totals x24h 11/22/16 11/23/16 11/24/16 23:59 23:59 23:59 Intake Total 920 950 700 Output Total 500 2600 1000 Balance 085 -2834 -300 - Results Results: Laboratory Results WBC 8.3 x10^3/uL (4.8-10.8) 11/24/16 05:01 RBC 3.13 10^6/uL (4.20-5.40) L 11/24/16 05:01 Hgb 10.4 g/dL (12.0-16.0) L 11/24/16 05:01 Hct 31.6 % (37.0-47.0) L 11/24/16 05:01 MCV 101.1 fL (81.0-99.0) H 11/24/16 05:01 MCH 33.4 pg (27.0-31.0) H 11/24/16 05:01 MCHC 33.0 g/dL (32.0-36.0) 11/24/16 05:01 RDW 13.4 % (12.0-15.0) 11/24/16 05:01 Plt Count 216 10^3/uL (130-450) 11/24/16 05:01 MPV 8.5 fL (7.9-10.8) 11/24/16 05:01 Neut # 4.3 10^3/uL (1.5-6.6) 11/24/16 05:01 Lymph # 2.4 10^3/uL (1.5-3.5) 11/24/16 05:01 [place] # 0.8 10^3/uL (0.0-1.0) 11/24/16 05:01 Eos # 0.6 10^3/uL (0.0-0.7) 11/24/16 05:01 Baso # 0.1 10^3/uL (0.0-0.1) 11/24/16 05:01 Absolute Nucleated RBC 0.02 x10^3/uL 11/24/16 05:01 Nucleated RBCs 0.2 /100WBC 11/24/16 05:01 D-Dimer 233.6 ng/mL (200.0-255.0) 11/23/16 09:03 Sodium 142 mmol/L (135-145) 11/24/16 05:01 Potassium 3.4 mmol/L (3.5-5.0) L 11/24/16 05:01 Chloride 105 mmol/L (101-111) 11/24/16 05:01 Carbon Dioxide 27 mmol/L (21-32) 11/24/16 05:01 Anion Gap 10.0 (6-13) 11/24/16 05:01 BUN 30 mg/dL (6-20) H 11/24/16 05:01 Creatinine 1.1 mg/dL (0.4-1.0) H 11/24/16 05:01 Estimated GFR (MDRD) 50 (>89) L 11/24/16 05:01 Glucose 94 mg/dL (70-100) 11/24/16 05:01 POC Whole Bld Glucose 279 mg/dL (70 - 100) H 11/24/16 11:55 Glycated Hemoglobin 7.5 % (4.6-6.2) H 11/22/16 05:33 Estim Average Glucose 169 (70-100) H 11/22/16 05:33 Calcium 9.0 mg/dL (8.5-10.3) 11/24/16 05:01 Magnesium 2.2 mg/dL (1.7-2.8) 11/23/16 05:33 Total Bilirubin 1.2 mg/dL (0.2-1.0) H 11/24/16 05:01 Direct Bilirubin 0.4 mg/dL (0.1-0.5) 11/23/16 05:33 AST 39 IU/L (10-42) 11/24/16 05:01 ALT 81 IU/L (10-60) H 11/24/16 05:01 Alkaline Phosphatase 70 IU/L (42-121) 11/24/16 05:01 Troponin I < 0.04 ng/mL (<0.49) 11/22/16 05:33 B-Natriuretic Peptide 619 pg/mL (5-100) H 11/24/16 05:01 Total Protein 7.7 g/dL (6.7-8.2) 11/24/16 05:01 Albumin 3.5 g/dL (3.2-5.5) 11/24/16 05:01 Globulin 4.2 g/dL (2.1-4.2) 11/24/16 05:01 Albumin/Globulin Ratio 0.8 (1.0-2.2) L 11/24/16 05:01 Triglycerides 80 mg/dL (-149) 11/22/16 05:33 Cholesterol 173 mg/dL (-199) 11/22/16 05:33 LDL Cholesterol, Calc 119 mg/dL (-129) 11/22/16 05:33 VLDL Cholesterol 16 mg/dL 11/22/16 05:33 HDL Cholesterol 38 mg/dL (60-) L 11/22/16 05:33 LDL/HDL Ratio 3.1 (<4.4) 11/22/16 05:33 Cholesterol/HDL Ratio 4.6 (<4.4) 11/22/16 05:33 Lipase 48 U/L (22-51) 11/21/16 21:50
[2016-11-24] MEDS ORDERED: IPRATROPIUM/ALBUTEROL 3 ML NEB INH PRN (16:35)
[2016-11-24] MEDS ORDERED: ALBUTEROL NEB 2.5 MG/3 ML INH PRN (16:35)
[2016-11-24] MEDS ORDERED: AZITHROMYCIN INJ 500 MG in SODIUM CHLORIDE 0.9% 250 ML IV SCH (17:00)
[2016-11-25] MEDS: HYDROcod/ACETAM 5/325 MG TABLET PO PRN (05:10)
[2016-11-25] MEDS: GABAPENTIN 300 MG CAPSULE PO SCH ×2 (05:10→14:06)
[2016-11-25] MEDS: SODIUM CHLORIDE FLUSH 0.9% 10 ML SYRINGE IVP SCH ×2 (05:11→14:07)
[2016-11-25 06:03] LABS: BASOPHILS # (AUTO) 0.1 10^3/uL (0.0-0.1); BASOPHILS % (AUTO) 1.4 %; EOSINOPHILS # (AUTO) 0.7 10^3/uL (0.0-0.7); EOSINOPHILS % (AUTO) 10.6 %; HCT - HEMATOCRIT 30.9 % (37.0-47.0); HGB - HEMOGLOBIN 10.3 g/dL (12.0-16.0); LYMPHOCYTES # (AUTO) 0.7 10^3/uL (1.5-3.5); LYMPHOCYTES % (AUTO) 11.5 %; MEAN CORPUSCULAR HEMOGLOBIN 33.7 pg (27.0-31.0); MEAN CORPUSCULAR HGB CONC 33.4 g/dL (32.0-36.0); MEAN PLATELET VOLUME 8.6 fL (7.9-10.8); MONOCYTES # (AUTO) 0.6 10^3/uL (0.0-1.0); MONOCYTES % (AUTO) 9.2 %; NEUTROPHILS # (AUTO) 4.2 10^3/uL (1.5-6.6); NEUTROPHILS % (AUTO) 67.3 %; RED BLOOD COUNT 3.06 10^6/uL (4.20-5.40); RED CELL DISTRIBUTION WIDTH 13.6 % (12.0-15.0); UNCORRECTED WHITE BLOOD COUNT 6.2 x10^3/uL; WHITE BLOOD COUNT 6.2 x10^3/uL (4.8-10.8)
[2016-11-25 06:13] LABS: ALBUMIN/GLOBULIN RATIO 0.8 (1.0-2.2); BILIRUBIN,TOTAL 0.7 mg/dL (0.2-1.0); CALCIUM 9.1 mg/dL (8.5-10.3); CREATININE 1.2 mg/dL (0.4-1.0); TOTAL PROTEIN 7.8 g/dL (6.7-8.2)
[2016-11-25] MEDS: POLYETHYLENE GLYCOL 3350 17 GM PACKET PO SCH (08:00)
[2016-11-25] MEDS: ENOXAPARIN 40 MG/0.4 ML SYRINGE SUBQ SCH (08:01)
[2016-11-25] MEDS: ASPIRIN EC 81 MG TABLET PO SCH (08:01)
[2016-11-25] MEDS: cloNIDine 0.1 MG TABLET PO SCH (08:01)
[2016-11-25] MEDS: FUROSEMIDE 40 MG/4 ML VIAL IVP SCH (08:01)
[2016-11-25] MEDS: diltiaZEM CD 120 MG CAPSULE PO SCH (08:01)
[2016-11-25] MEDS: INSULIN NPH HUMAN 100 UNIT/1 ML 10 ML MDV SUBQ SCH (08:02)
[2016-11-25] MEDS: INSULIN ASPART 300 UNIT/3 ML PEN SUBQ SCH ×2 (08:02→12:13)
[2016-11-25] MEDS: FAMOTIDINE 20 MG TABLET PO SCH (08:04)
[2016-11-25] MEDS ORDERED: SENNA 8.6 MG TABLET PO SCH (09:00)
[2016-11-25] MEDS ORDERED: DOCUSATE SODIUM 250 MG CAPSULE PO SCH (09:00)
--- NOTE | 2016-11-25 11:52 | Discharge Plan ---
Discharge Plan Disposition: Home, Self Care Condition: Good Prescriptions: diltiaZEM CD [Cardizem Cd] 120 mg PO DAILY #30 capsule Cefuroxime Axetil [Ceftin] 250 mg PO Q12H #14 tablet Ipratropium/Albuterol [Duoneb] 3 ml INH TID #90 neb Furosemide [Lasix] 40 mg PO DAILY #30 tablet Albuterol Sulfate [Proair Hfa Inhaler] 1 - 2 puffs INH Q4H PRN #2 [email or web address] PRN Reason: Shortness Of Air/Wheezing Azithromycin [Zithromax] 250 mg PO DAILY #6 tablet Diet: Diabetic Activity Restrictions: Activity as Tolerated Shower Restrictions: No Driving Restrictions: Yes (none now) Weight Bearing: Full Weight Additional Instructions or Follow Up instructions: Take your medicines as directed. Enjoy your family, especially Fede. Follow up with The clinic in the next week. I appreciated the opportunity to care for you. Dr. Stein No Smoking: If you smoke, Please STOP! Call for help. Follow-up with: Kailey Huber ARNP [Credentialed Staff Provider] -
--- NOTE | 2016-11-25 13:30 | Discharge Plan ---
Discharge Plan Disposition: Home, Self Care Condition: Good Prescriptions: diltiaZEM CD [Cardizem Cd] 120 mg PO DAILY #30 capsule Cefuroxime Axetil [Ceftin] 250 mg PO Q12H #14 tablet Ipratropium/Albuterol [Duoneb] 3 ml INH TID #90 neb Furosemide [Lasix] 40 mg PO DAILY #30 tablet Albuterol Sulfate [Proair Hfa Inhaler] 1 - 2 puffs INH Q4H PRN #2 hfa.aer.ad PRN Reason: Shortness Of Air/Wheezing Azithromycin [Zithromax] 250 mg PO DAILY #6 tablet Activity Restrictions: Activity as Tolerated Shower Restrictions: No Driving Restrictions: Yes (none now) Weight Bearing: Full Weight Additional Instructions or Follow Up instructions: Take your medicines as directed. Enjoy your family, especially Fede. Follow up with The clinic in the next week. I appreciated the opportunity to care for you. Dr. Stein No Smoking: If you smoke, Please STOP! Call for help. Follow-up with: Kailey Huber ARNP [Credentialed Staff Provider] -
[2016-11-25 14:21] VITALS: BP 152/67
--- NOTE | 2016-11-25 19:33 | DISCHARGE SUMMARY ---
DATE OF ADMISSION: 11/21/2016 DATE OF DISCHARGE: 11/25/2016 PRIMARY CARE PHYSICIAN: No PCP in the area. ADMISSION DIAGNOSES 1. New onset atrial fibrillation with relatively controlled rate. 2. Congestive heart failure. 3. Hypertension. 4. Diabetes, insulin-dependent. 5. Renal insufficiency. 6. Heart murmur. 7. 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 DISCHARGE DIAGNOSES 1. Atrial fibrillation with improved rate control, suspect chronic or recurrent. 2. Congestive heart failure with normal ejection fraction, suspect diastolic. 3. Pneumonia, occult. Not seen on chest x-ray, seen on CT scan. 4. Asthma, recent onset versus secondary to pneumonia. 5. Diabetes, insulin-dependent. 6. Chronic kidney disease. 7. Heart murmur. SPECIAL PROCEDURES: Chest CTA showed 1. No pulmonary emboli, evidence streak artifact related to her thoracic spine fusion hardware. 2. Congestive heart failure. Cardiomegaly with interstitial and alveolar edema. Asymmetric prominence of right upper lobe airspace could be related to pneumonia. Recommend clinical correlation. 3. Mild right hilar and mediastinal adenopathy. Echocardiogram conclusion 1. Overall ventricular systolic function is normal with an ejection fraction of 65% to 70%. 2. Right ventricle is normal in size and function. 3. Mild to moderate tricuspid regurgitation. 4. Moderately severe abnormal right heart pressures. 5. RVSP of 69. HOSPITAL COURSE AND MANAGEMENT: Initial presentation, hospital emergency evaluation, and hospitalist plan are well described in the history and physical , see copy of same. SUMMARY: This patient is a 61-year-old female of Citizen Of [place] descent who is visiting from [place], [place] in [place] and has had increasing shortness of breath and initially was reported as being rapid in actuality. It has been going on for weeks to months and worsening over the last week. She was admitted with what was reported as new atrial fibrillation and also heart failure. The patient had the echocardiogram, as noted above. She had widely oscillating heart rates from 40s to 120s. Her Cardizem was reduced from 60 q.6 hours to 30 mg q.6 hours. The following day, on examination, the patient had better control with a lower dose. Blood pressure was still in the low-normal range. Therefore, she was changed to Cardizem CD 120 mg. She is still requiring oxygen. She also complained of dizziness and that her right ear was plugged. This was examined and found to be normal. The patient was still having the shortness of breath, complained of wheezing and on 11/24, had CT angio done, which showed heart failure with interstitial edema but also a mass in the right upper lung, which is consistent with pneumonia, and the patient, once she received an albuterol treatment by nebulizer, had dramatic improvement and able to tolerate not having the oxygen. The patient was ambulated and her O2 sat dropped to a low of 90% and quickly recovered to 94-95. The patient was deconditioned and had a perception of shortness of breath, was sighing some, but tolerated walking over 80 feet. PHYSICAL EXAMINATION VITAL SIGNS: On the day of discharge examination, she had a temperature of 37.0 , pulse 56, respirations 20, blood pressure 152/67, O2 saturation 94%. GENERAL: The patient is well developed, well nourished, appears stated age. EYES: EOM within normal limits, PERRL, nonicteric. MOUTH AND THROAT: Moist mucous membranes. No other pathology noted. NECK: No lymphadenopathy, no thyromegaly. No bruits, JVD. CHEST: Nontender. Symmetric. BREASTS: No breast exam done. HEART: Atrial fibrillation with a 2/6 systolic murmur. LUNGS: She has occasional wheeze. Very good air movement. No prolonged expiration at this time. ABDOMEN: Thick abdominal wall, soft, nontender. EXTREMITIES: Without edema. She does have 1+ distal pulses. NEUROLOGIC: Cognition intact. Cranial nerves intact. Motor intact. The patient' s gait is slow, but no instability or otherdeficits noted. LABORATORY DATA: She had a white count of 6.2, hemoglobin and hematocrit 10 and 31, platelet count 221. The sodium 140, potassium 4.0, chloride 103, CO2 of 28, BUN 28, creatinine 1.2. She has a glucose of 143, calcium 9.1, albumin is 3.4. The patient's sugars ranged from 152 to 316. ALLERGIES: PATIENT HAS NO KNOWN ALLERGIES. MEDICATIONS TO THE HOME 1. Insulin regular 5 units t.i.d. 2. NPH 20 units b.i.d. 3. Aspirin 81 mg a day. 4. Pepcid 20 mg a day. 5. Clonidine 0.1 mg t.i.d. 6. Cyclobenzaprine 5 mg at bedtime. 7. Norvasc 10 mg daily. 8. Gabapentin 300 mg t.i.d. 9. Metformin 1000 mg b.i.d. 10. Glipizide 10 mg twice a day. 11. Percocet 5 mg 3 times a day. 12. Fentanyl patch 12 mcg every 3 days. 13. Diltiazem 120 mg a day. 14. Albuterol DuoNeb 3 mL by inhalation nebulizer 3 times a day. 15. Lasix 40 mg a day.' 16. Ceftin 200 mg a day. 17. Zithromax 250 mg a day x6 days. 18. Albuterol inhaler 1-2 puffs every 4 hours as needed. Patient is to follow up with [facility] and the patient's outpatient issues are going to be the resolution of her pneumonia, the asthma, the atypical presentation of the pneumonia, and the CHF which should have been mostly right heart failure, but presumptively because of the atrial fibrillation and tachycardia, had characteristics of left heart failure with pulmonary vascular congestion. The patient's diabetes mellitus also needs to be followed up as an outpatient, as well as control of her atrial fibrillation. The patient is discharged home after counseling the patient, collaboration with case management, nursing and so forth. Time spent in discharge activities, including case management, social work, collaboration of care and also education with the patient was 40 minutes. JOB #: [id number] EXT JOB #:[id number] [email or web address]
== END 2016-11-25 14:40 | disposition home or self-care (01) | DRG 291 ==
LOC: ED 21:24 → MS3 23:57
PROVIDERS: ADMIT Internal Medicine; ATTEND Internal Medicine
DX: I13.0 Hypertensive heart and chronic kidney disease with heart failure and stage 1 through stage 4 chronic kidney disease, or unspecified chronic kidney disease (principal); J18.9 Pneumonia, unspecified organism; I48.1 Persistent atrial fibrillation; I50.30 Unspecified diastolic (congestive) heart failure; E11.22 Type 2 diabetes mellitus with diabetic chronic kidney disease; N18.9 Chronic kidney disease, unspecified; R09.02 Hypoxemia; R01.1 Cardiac murmur, unspecified; J45.909 Unspecified asthma, uncomplicated; Z79.4 Long term (current) use of insulin; Z79.891 Long term (current) use of opiate analgesic; Z79.82 Long term (current) use of aspirin
CPT/HCPCS: 36415; 71010; 71275; 80048; 80053; 80061; 80076; 83036; 83690; 83735; 83880; 84484; 85025; 85379; 93005; 93306; 94640; 94664; 96374; 99284; 99285